=== PATIENT | female | born 1990 | race Caucasian/White ===

== ENCOUNTER → 2017-07-21 16:30 | Outpatient (CLI) | payer OTHER, SELFPAY ==
[2017-04-04 22:00] VITALS: BP 122/73
[2017-05-12 18:18] VITALS: BP 107/67; BP 109/68
[2017-05-30 16:08] VITALS: BP 106/71; BMI 31.3
--- NOTE | 2017-07-21 | IMM_PTH ---
PATIENT: FREDDIE GREENWOOD LOC: AIDE U#:[id number] AGE/SX: 34/F ROOM: RE07/21/[address]: Dr. Arabella Merritt MD : 1990 BED: DIS: SPEC #: [id number] RECD: 07/25/17 11:44 STATUS: NUPUR JONY #: [id number] THERESA: 07/21/17 00:[address]: Arabella Molina DEPT: IMMUNOHISTOCHEMISTRY RECD BY: Anette Sanchez Tissues: A - Uterine cervix, NOS Procedures: p16 (initial) KI-67 (add) PHYSICIAN & INSTITUTION [place] [id number] SPECIMEN INFORMATION: Tissue Source: A ? Cervical biopsy 12 o?clock Clinical Info: [facility] Specimen Number: [id number] CPT code: 17603, 71117 METHODOLOGY: Deparaffinized sections of prefer/formalin-fixed tissue or PAP/DQ stained slides are incubated with monoclonal/polyclonal antibodies/oligonucleotide probes. Localization is made via biotin free immunoperoxidase method. Appropriate controls are performed and reacted as expected. Results on target cell population are indicated in the following table: RESULTS: ANTIBODY / CLONE RESULT Block A P16 (E6H4) positive, focal patchy Ki-67 (30-9) positive, low These tests were developed and their performance characteristics determined by [facility]. They may not have been cleared or approved by the U.S. Food and Drug Administration. The FDA has determined that such clearance or approval is not necessary. INTERPRETATION: A. Cervix at 12 o?clock, biopsy: Consistent with HPV change. AM:sidra 07/26/17
--- NOTE | 2017-07-21 14:05 | CER_PTH ---
PATIENT: FREDDIE GREENWOOD LOC: AIDE U#:[id number] AGE/SX: 34/F ROOM: RE07/21/[address]: Dr. Arabella Merritt MD : 1990 BED: DIS: SPEC #: [id number] RECD: 07/21/17 15:33 STATUS: NUPUR JONY #: [id number] THERESA: 07/21/17 14:[address]: Arabella Molina DEPT: SURGICAL PATHOLOGY RECD BY: Jose Elias Larson Tissues: \A - Uterine cervix, NOS B - Endocervical Procedures: Surgery Specimen Level IV HEADER OPERATION: Colposcopy PRE-OP DIAGNOSIS: LGSIL pap 07/09/16; LMP 07/02/17 TISSUE SUBMITTED: A ? Cervical biopsy 12 o?clock, B - ECC MICROSCOPIC DIAGNOSIS A. Cervix at 12 o?clock, biopsy: HPV change/TEE I. Minimal chronic inflammation. B. Endocervix, curettings: Scant strips of benign superficial endocervix. AM:sidra 07/25/17 COMMENT A. Immunohistochemistry ([id number]) for surrogate HPV marker (p16) will be reported separately. MICROSCOPIC DESCRIPTION Slides are reviewed. GROSS DESCRIPTION A - Received in fixative is one container labeled with the patient's name and designated cervical biopsy at 12 o'clock. The specimen consists of one irregular fragment of light saab soft tissue that measures 0.5 x 0.3 x 0.1 cm. The specimen is totally submitted in one cassette. B - Received in fixative is one container labeled with the patient's name and designated ECC. The specimen consists of multiple minute fragments of light saab soft tissue that in aggregate measure 1 x 0.5 x <0.1 cm. The specimen is totally submitted in one cassette. / AM:sidra 07/22/17 TC:3 CPT: 36235 x2
[2017-07-26 14:37] LABS: HPV Reflexed? NOT INDICATED
== END ==
PROVIDERS: Visit Provider Obstetrics & Gynecology
DX: R87.612 Low grade squamous intraepithelial lesion on cytologic smear of cervix (LGSIL) (principal); Z12.4 Encounter for screening for malignant neoplasm of cervix
CPT/HCPCS: 88175; 88305; 88341; 88342; G0145

== ENCOUNTER → 2018-02-27 06:51 | Outpatient (CLI) | payer OTHER, SELFPAY ==
[2018-02-27 09:03] LABS: Hematocrit 37.1 % (37-47); Hemoglobin 12.6 g/dl (12.0-15.0); Mean Corpuscular Hgb 31.5 pg (27.0-32.0); Mean Corpuscular Volume 92.8 fL (81-99); Platelet Count 227 K/mm3 (150-450); RBC Distribution Width CV 11.8 % (11.6-14.6); RBC Distribution Width SD 39.3 fl (35.1-43.9)
[2018-02-27 09:12] LABS: Scan Indicated on CBC? Y/N NO
[2018-02-27 09:13] LABS: Glucose 75GTT - 30 minutes 114 mg/dL (100-160)
[2018-02-27 09:14] LABS: Glucose 75GTT - 60 minutes 95 mg/dL (100-160)
[2018-02-27 09:18] LABS: Insulin 75GTT - 30 MIN 43.3 mU/L (Not Estab.)
[2018-02-27 09:20] LABS: Insulin 75GTT - 60 min 39.2 mU/L (Not Estab)
[2018-02-27 09:20] LABS: Insulin 75GTT - Fasting 4.4 mU/L (2.6-37.6)
[2018-02-27 09:21] LABS: Progesterone Level 0.47 ng/mL (See Comment); Vitamin D,25 Hydroxy 26.5 ng/mL (29.95-100.01)
[2018-02-27 09:23] LABS: Glucose 75GTT - Fasting 81 mg/dL (70-99)
[2018-02-27 10:01] LABS: Glucose 75GTT - 120 minutes 85 mg/dL (70-140)
[2018-02-27 10:13] LABS: Insulin 75GTT - 120 min 17.7 mU/L (Not Estab.)
[2018-02-27 11:49] LABS: Estradiol 66.4 pg/mL; Follicle Stimulating Hormone 4.7 mIU/mL; Free T3 2.6 pg/mL (2.18-3.98); GGTP 10 U/L (5-55); Prolactin 8.5 ng/mL; T4 Free Direct 0.92 ng/dL (0.76-1.46); Thyroid Stim Hormone (TSH) 0.65 uIU/mL (0.358-3.74)
[2018-02-28 05:08] LABS: DHEA Sulfate 165.8 ug/dL (84.8-378.0)
[2018-02-28 09:49] LABS: Sex Hormone-binding Globulin 67.3 nmol/L (24.6-122.0)
[2018-03-02 09:07] LABS: 17-Hydroxyprogesterone 30 ng/dL (.)
== END ==
PROVIDERS: Family Provider Family Medicine; PCP Family Medicine; Visit Provider Obstetrics & Gynecology
DX: R45.86 Emotional lability (principal); E55.9 Vitamin D deficiency, unspecified; L65.9 Nonscarring hair loss, unspecified; Z68.37 Body mass index [BMI] 37.0-37.9, adult
CPT/HCPCS: 36415; 82306; 82533; 82627; 82670; 82951; 82952; 82977; 83001; 83498; 83525; 84144; 84146; 84270; 84403; 84439; 84443; 84481; 85027; 82626

== ENCOUNTER → 2018-06-15 17:49 | Outpatient (CLI) | payer OTHER, SELFPAY ==
[2018-06-22 09:34] LABS: HPV APTIMA, High Risk Negative (Negative)
== END ==
PROVIDERS: Family Provider Family Medicine; PCP Family Medicine; Referring Provider Obstetrics & Gynecology; Visit Provider Obstetrics & Gynecology
DX: E55.9 Vitamin D deficiency, unspecified (principal); Z12.4 Encounter for screening for malignant neoplasm of cervix
CPT/HCPCS: 82306; 87624; 88175; G0145

== ENCOUNTER → 2019-04-20 | Outpatient (CLI) | payer OTHER, SELFPAY ==
[2019-04-20 20:44] LABS: hCG Titer Quant., Serum < 1 mIU/mL (1-3)
[2019-04-20 20:54] LABS: Progesterone Level 5.23 ng/mL (See Comment)
== END | disposition home or self-care (01) ==
LOC: WOBLAB 13:05
PROVIDERS: Family Provider Family Medicine; PCP Family Medicine; Visit Provider Obstetrics & Gynecology
DX: N91.2 Amenorrhea, unspecified (principal)
CPT/HCPCS: 36415; 84144; 84702

== ENCOUNTER → 2020-01-04 | Outpatient (CLI) | payer OTHER, SELFPAY ==
[2017-05-30 16:08] VITALS: BMI 31.3
[2020-01-04 15:51] LABS: Basophil# 0.04 X10^3/uL; Basophil% 0.4 % (0-1); Eosinophil# 0.04 X10^3/uL; Eosinophils% 0.4 % (0-5); Hematocrit 37.3 % (37-47); Hemoglobin 12.5 g/dL (12.0-15.0); Lymphocyte % 18.1 % (19-41); Mean Corp Hgb Conc 33.5 g/dL (32-36); Mean Corpuscular Hgb 31.4 pg (27.0-32.0); Mean Corpuscular Volume 93.7 fL (81-99); Mean Platelet Vol. 11.6 fl (6.2-12.0); Monocyte# 0.62 X10^3/uL; Monocyte% 6.6 % (0-10); NRBC Flagged by Analyzer 0 % (0-5); Neutrophil # 6.95 X10^3/uL (2.7-7.7); Neutrophil % 74.1 % (47-70); Platelet Count 244 K/mm3 (150-450); RBC Distribution Width CV 11.5 % (11.6-14.6); RBC Distribution Width SD 38.9 fl (35.1-43.9); Red Blood Count 3.98 M/mm3 (4.2-5.4); White Blood Count 9.4 K/mm3 (4.4-11.0)
[2020-01-04 16:17] LABS: Thyroid Stim Hormone (TSH) 0.41 uIU/mL (0.358-3.74)
[2020-01-04 16:20] LABS: Color, Urine Yellow (Yellow); Glucose, Dipstick Normal (Normal); Ketone-Dipstick Negative (Negative); Leukocyte Esterase-Dipstick Negative /ul (Negative); Nitrite-Dipstick Negative (Negative); Occult Blood-Urine Negative /ul (Negative); Protein-Dipstick Negative (Negative); Urine Bilirubin Dipstick Negative (Negative); Urine Clarity Clear (Clear); Urine Urobilinogen Normal (Normal)
[2020-01-04 16:37] LABS: Amphetamine Urine VISTA NEGATIVE (<1000 ng/mL); Barbiturate Urine VISTA NEGATIVE (< 200 ng/mL); Benzodiazepine Urine VISTA NEGATIVE (< 200 ng/mL); Cocaine Urine VISTA NEGATIVE (< 300 ng/mL); Ecstacy Urine VISTA NEGATIVE (< 500 ng/mL); Methadone Urine VISTA NEGATIVE (< 300 ng/mL); PCP Urine VISTA NEGATIVE (< 25 ng/mL); THC Urine VISTA NEGATIVE (< 50 ng/mL); Vista UDS pH Range 7
[2020-01-04 16:58] LABS: HIV - WCH Non-Reactive (Nonreactive); Hepatitis B Surface Antigen Non-Reactive (Nonreactive); Hepatitis C Antibody Non-Reactive (Nonreactive); Vitamin D,25 Hydroxy 57.2 ng/mL
[2020-01-04 17:48] LABS: Chlamydia Trachomatis by PCR Negative (Negative); Neisserai gonorrhoeae by PCR Negative (Negative); Probe Check PASS; Sample Adequacy Control PASS; Specimen Processing Control PASS
[2020-01-10 02:01] LABS: Prenatal RPR NONREACTIVE (NONREACTIVE)
== END | disposition home or self-care (01) ==
LOC: LABSPEC 14:09
PROVIDERS: PCP Family Medicine; Visit Provider Obstetrics & Gynecology
DX: Z34.81 Encounter for supervision of other normal pregnancy, first trimester (principal)
CPT/HCPCS: 80307; 81002; 82306; 84443; 85025; 86703; 86762; 86803; 87340; 87491; 87591

== ENCOUNTER → 2020-06-17 08:59 | Outpatient (CLI) | payer OTHER, SELFPAY ==
[2020-06-17 10:46] LABS: Hematocrit 32.4 % (37-47); Hemoglobin 10.7 g/dL (12.0-15.0); Mean Corpuscular Hgb 30.8 pg (27.0-32.0); Mean Corpuscular Volume 93.4 fL (81-99); Mean Platelet Vol. 10.6 fl (6.2-12.0); Platelet Count 168 K/mm3 (150-450); RBC Distribution Width CV 12.7 % (11.6-14.6); RBC Distribution Width SD 43.1 fl (35.1-43.9); Red Blood Count 3.47 M/mm3 (4.2-5.4); White Blood Count 7.7 K/mm3 (4.4-11.0)
[2020-06-17 10:50] LABS: Glucose Challenge Gest 1H 50g 107 mg/dL (70-140)
[2020-06-17 14:15] LABS: Ferritin 9 ng/mL (8-252)
== END ==
PROVIDERS: PCP Family Medicine; Visit Provider Obstetrics & Gynecology
DX: O28.0 Abnormal hematological finding on antenatal screening of mother (principal); R79.0 Abnormal level of blood mineral; Z3A.00 Weeks of gestation of pregnancy not specified
CPT/HCPCS: 36415; 82728; 82950; 85027; 86850

== ENCOUNTER → 2020-07-16 | Outpatient (CLI) | payer BC, SELFPAY ==
[2017-05-30 16:08] VITALS: BMI 31.3
== END | disposition home or self-care (01) ==
PROVIDERS: PCP Family Medicine; Visit Provider Obstetrics & Gynecology
DX: N39.0 Urinary tract infection, site not specified (principal)
CPT/HCPCS: 87086; 87088

== ENCOUNTER → 2020-07-23 | Outpatient (CLI) | payer BC, SELFPAY ==
[2017-05-30 16:08] VITALS: BMI 31.3
== END | disposition home or self-care (01) ==
LOC: LABSPEC 17:20
PROVIDERS: PCP Family Medicine; Visit Provider Obstetrics & Gynecology
DX: Z36.85 Encounter for antenatal screening for Streptococcus B (principal)
CPT/HCPCS: 87081

== ENCOUNTER → 2020-08-05 | Outpatient (CLI) | payer BC, SELFPAY | END | disposition home or self-care (01) | LOC: LABSPEC 16:34 | PROVIDERS: PCP Family Medicine; Referring Provider Obstetrics & Gynecology; Visit Provider Obstetrics & Gynecology | DX: Z03.818 Encounter for observation for suspected exposure to other biological agents ruled out (principal) | CPT/HCPCS: 87635; C9803; U0005; U0003 ==

== ENCOUNTER 2020-08-12 05:05 | Inpatient (IN) | payer BC, SELFPAY ==
[2020-08-12] VITALS (22 sets, daily range): BP systolic 92–120; BP diastolic 42–76; PULSE 60–79; RESP 12–18; TEMP 36.1–36.6; O2SAT 96–98; BMI 36.8
[2020-08-12] MEDS: Lactated Ringers 1,000 ML 999 ML IV (05:17)
[2020-08-12 05:36] LABS: Basophil# 0.04 X10^3/uL; Basophil% 0.4 % (0-1); Eosinophil# 0.08 X10^3/uL; Eosinophils% 0.8 % (0-5); Hematocrit 36.4 % (37-47); Mean Corpuscular Volume 94.1 fL (81-99); Mean Platelet Vol. 11.2 fl (6.2-12.0); Monocyte# 0.71 X10^3/uL; Monocyte% 6.7 % (0-10); NRBC Flagged by Analyzer 0 % (0-5); Neutrophil # 7.98 X10^3/uL (2.7-7.7); Neutrophil % 75.2 % (47-70); Platelet Count 152 K/mm3 (150-450); RBC Distribution Width CV 12.8 % (11.6-14.6); RBC Distribution Width SD 44.1 fl (35.1-43.9); Red Blood Count 3.87 M/mm3 (4.2-5.4); White Blood Count 10.6 K/mm3 (4.4-11.0)
[2020-08-12] MEDS: Lactated Ringers 1,000 ML 150 ML IV (06:26)
[2020-08-12] MEDS: Acetaminophen 500 MG Tablet 1000 MG PO ×3 (07:17→19:34)
[2020-08-12] MEDS: Sodium Citrate/Citric Acid 30 ML UDC PO (07:17)
[2020-08-12] MEDS: Cefazolin 2 GM in 0.9% Normal Saline 100 ML IV (07:22)
--- NOTE | 2020-08-12 07:25 | PCM.HPOB.BLA ---
History and Physical Date of Admission: 08/12/20 Chief complaint: Repeat History of present illness: 30-year-old G2, P1 at 39 weeks and 3 days with DENISE: 08/16/2020 by LMP arrives for repeat section. Denies headache, nausea vomiting, visual changes, chest pain, shortness of breath, right upper quadrant pain. Patient states good movement Obstetric history: G1: 41-week male primary section for failure to progress 04/01/2017 G2: Current Past medical history: Anxiety depression Medications: vitamin, Zoloft Past surgical history: section, repair of vaginal laceration Allergies: No known drug allergies Family history: Denies history of DVT or PE Social history: Denies smoking, alcohol use, drug use Review of systems: Besides the above pertinent positives a full review of systems was performed and found to be negative Physical exam: General: Normal-appearing no acute distress HEENT: Normocephalic and atraumatic no cervical lymphadenopathy Cardiac/respiratory: No use of accessory muscles nonlabored breathing Abdomen: Soft, nontender, gravid Extremities: No peripheral edema normal peripheral pulses Psych: Normal affect normal demeanor nonpressured speech Mom's Labs & Results 08/12/20 08/12/20 05:17 05:17 WBC 10.6 RBC 3.87 L Hgb 12.0 Hct 36.4 L MCV 94.1 MCH 31.0 MCHC 33.0 RDW Std Deviation 44.1 H RDW Coeff of Edward 12.8 Plt Count 152 MPV 11.2 Immature Gran % (Auto) 0.900 Neut % (Auto) 75.2 H Lymph % (Auto) 16.0 L [place] % (Auto) 6.7 Eos % (Auto) 0.8 Baso % (Auto) 0.4 Absolute Neuts (auto) 8.0 H Absolute Lymphs (auto) 1.70 Nucleated RBC % 0 Blood Type Pending Antibody Screen Pending Labs Blood Type: B RH: NEGATIVE RPR/VDRL/Syphilis Nonreactive Rubella status Immune HbSAg Negative Date Done: 01/03/21 Chlamydia Negative Gonorrhea Negative HIV/AIDS Non-Reactive Group B Strep: Negative Medications Taken During Dose/Freq.: [Antidepressant] 100 mg DAILY Last Date/Time of Medication 08/11/2020 Taken: [Antidepressant] Reason for taking medication [ depression/anxiety Antidepressant] Assessment and plan: 30-year-old at 39 weeks and 3 days for repeat section -Admit to women's feeling -2 g Ancef -CEFM -Routine orders Rh-: For RhoGam -Anesthesia to see
--- NOTE | 2020-08-12 08:30 | PCM.OPRPT ---
Delivery Date of Procedure: 08/12/20 Pre-Operative Diagnosis: Term, history of section Post-Operative Diagnosis: Term, history of section Description of Procedure: Surgeon: Kel Fitzpatrick MD Procedure: Repeat section Via Pfannenstiel incision EBL 600 cc IV fluids 1000 cc Urine output minimal Anesthesia: Spinal Complications: None Specimen: None Findings: Female infant in vertex position Apgars 8/9. Normal uterus, tubes, and ovaries. Minimal adhesions Consent: Patient with history of section at term need of repeat section. Patient understands the risk of the procedure include but are not limited to visceral or vascular injury, prolonged hospitalization, blood loss need for transfusion, reoperation. Patient had understanding wished proceed. All questions were answered consent was signed. Procedure: Patient was brought back to the OR where spinal anesthesia found to be adequate. 2 g of Ancef were given for infection prophylaxis. Patient was apparent draped in a dorsal supine position with leftward tilt. A Pfannenstiel incision was made the skin with a scalpel. The incision was carried down to the fascia with a scalpel. The fascia was excised extended laterally. Inferior aspect of the fascia was grasped and the underlying rectus and pyramidalis muscle dissected off sharply. In a similar fashion superior aspect of the fascia was grasped with a Heather clamp and the underlying rectus muscle was dissected off sharply. Rectus was dissected to the midline down to the level of the pubic symphysis. Peritoneum was entered bluntly. Peritoneum was extended superiorly and inferiorly with good visualization of bladder. Bladder blade was inserted and vesicouterine peritoneum was identified. Low transverse hysterotomy was made. Hand was placed into the hysterotomy and gentle fundal pressure was applied once the bladder blade was removed and the head was brought into the incision. Head and shoulders were delivered with ease. Cord was cut and clamped. He was handed off to nursing. Placenta was delivered via cord traction and fundal massage. IV oxytocin was initiated in order to facilitate uterine contractions. Uterus was exteriorized and wiped out with dry laparotomy sponge in order to remove remaining placental membranes. Uterus was closed continuous running fashion. Second layer was performed. Uterus was placed back into the abdominal cavity and good hemostasis was noted. Muscles reapproximated. Fascia was closed in a continuous running fashion. Skin was closed in a subcuticular fashion. All counts correct x2. Patient tolerated procedure well was brought to recovery in stable condition.
--- NOTE | 2020-08-12 08:37 | DCINST_ITS ---
Discharge Diet: No Restrictions Discharge Activity: Return to Normal Activity, May Drive, May not drive while taking narcotic pain medications., May Shower, - - No tub baths for 2 weeks May resume sexual activity in: 4-6 weeks Lifting Restrictions: No lifting over 25 pounds for 3 weeks Call your doctor if your incision/area has: Continuous Slow Oozing, Foul Smelling Discharge Call your doctor if you observe: Fever of 101 or Higher, Shortness of breath, Chest pain Additional Instructions: If you experience any of the following, contact your healthcare provider. * Bleeding that soaks a pad every hour for 2 hours * Fever 100.4 or higher * Unrelieved incision or abdominal pain * Swelling, redness, discharge or bleeding from your incision or episiotomy site * Your incision begins to separate * Problems urinating (including inability to urinate or burning while urinating). * Visual changes * Severe headache * Flu-like symptoms * Pain or redness in one of both of your breasts * Pain, warmth, tenderness or swelling in your legs, especially the calf area * Frequent nausea and vomiting * Symptoms of depression or anxiety If you experience any of the following, call 911 or go to the nearest Emergency Room. * Chest pain * Problems breathing * Seizure activity * Partial or complete paralysis of a body part, slurred speech, weakness or drooping of the face, or a sudden inability to walk or hold your balance Allergies/Adverse Reactions: Allergies No Known Allergies Allergy (Verified 08/12/20 05:19) Medications to take at Discharge Sertraline HCl [Zoloft] 100 mg PO DAILY 03/31/17 Ferrous Sulfate, Dried [Iron] 65 mg PO DAILY 08/12/20 Oxycodone [Oxyir] 5 mg PO Q6H PRN PRN 4 Days #16 tablet 08/12/20 Vit No.130/Iron/Folic [ Tablet] 1 tab PO DAILY 08/12/20 The following prescriptions were given: Oxycodone [Oxyir] 5 mg PO Q6H PRN PRN 4 Days #16 tablet PRN Reason: Pain Score 6-10 Transmission Status: Sent to [facility] Follow-Up: Call to make an appointment with your doctor for an incision check in 1-2 weeks. You will also need a 6 week post- follow up appointment. Test results from this visit will be discussed in further detail at your follow- up appointment, if applicable. Please Follow Up With: Kel Fitzpatrick MD When: 2 weeks Primary Care Physician: Juanito Tejada MD [Primary Care Provider] -
[2020-08-12] MEDS: Oxytocin 30 units/NS 500 ml 30 UNITS/500 ML IV.SOLN 167 UNITS IV (08:45)
--- NOTE | 2020-08-12 09:27 | NURSING ---
Pre-op checklist not completed by prior RN. This RN completed pre-op checklist at this time with information gathered during morning shift change report and worksheet completed by prior RN.
[2020-08-12] MEDS: Lactated Ringers 1,000 ML 100 ML IV (12:00)
[2020-08-12] MEDS: Senna/Docusate Sodium 1 Tablet PO (13:17)
[2020-08-12] MEDS: Ketorolac 30 MG/ML Syringe IV ×2 (15:16→20:33)
[2020-08-12] MEDS: Enoxaparin 40 MG/0.4 ML Syringe SC (20:33)
[2020-08-13 01:08] VITALS: RESP 16; O2SAT 99
[2020-08-13] MEDS: Acetaminophen 500 MG Tablet 1000 MG PO ×2 (01:32→07:29)
[2020-08-13] MEDS: Ketorolac 30 MG/ML Syringe IV ×2 (02:29→08:41)
[2020-08-13] MEDS: 0.9% Saline Lock 10 ML Syringe IV ×2 (02:30→08:41)
[2020-08-13 03:26] VITALS: BP 103/56; PULSE 71; RESP 18; TEMP 36.8; O2SAT 98
[2020-08-13 05:05] VITALS: RESP 16; O2SAT 99
[2020-08-13 06:04] LABS: Hematocrit 32.4 % (37-47); Hemoglobin 10.9 g/dL (12.0-15.0); Mean Corp Hgb Conc 33.6 g/dL (32-36); Mean Corpuscular Hgb 32.2 pg (27.0-32.0); Mean Corpuscular Volume 95.6 fL (81-99); Mean Platelet Vol. 11.4 fl (6.2-12.0); Platelet Count 135 K/mm3 (150-450); RBC Distribution Width SD 45.4 fl (35.1-43.9); Red Blood Count 3.39 M/mm3 (4.2-5.4); White Blood Count 11.4 K/mm3 (4.4-11.0)
[2020-08-13 08:33] VITALS: BP 99/55; PULSE 68; RESP 18; TEMP 36.6; O2SAT 98
--- NOTE | 2020-08-13 08:33 | PCM.PN.OB ---
Subjective: No overnight complaints. Pain well controlled. - Physical Exam Vitals/I&O's: Vital Signs Temp Pulse Resp BP Pulse Ox 98.2 F 71 16 103/56 L 99 08/13/20 03:26 08/13/20 03:26 08/13/20 05:05 08/13/20 03:26 08/13/20 05:05 Oxygen Delivery Method Room Air Weight: 214 lb 4.629 oz Body Mass Index (BMI) 36.8 Intake and Output for Last 24 Hours 08/11/20 08/12/20 08/13/20 23:59 23:59 23:59 Intake Total 2720 / 2720 900 / 900 Output Total 750 / 750 1150 / 1150 Balance 1969 / 1969 -250 / -250 General: Alert, Oriented x3, Cooperative, No apparent distress HEENT: Atraumatic, Normocephalic Oral: Moist Mucosa Neck: Supple Abdomen: Soft, Non Tender, - - Bandage clean dry and intact. Fundus firm and below umbilicus Extremities: No clubbing, No cyanosis, No edema Neurological: Neuro grossly intact Psych/Mental Status: Normal Affect, Appropriate, Alert and oriented to time, place, person, mood and affect Laboratory Results 08/13/20 05:55: WBC 11.4 H, RBC 3.39 L, Hgb 10.9 L, Hct 32.4 L, MCV 95.6, MCH 32.2 H, MCHC 33.6, RDW Std Deviation 45.4 H, RDW Coeff of Edward 13.0, Plt Count 135 L, MPV 11.4 Current Medications Acetaminophen (Acetaminophen 500 Mg Tablet) 1,000 mg PO Q6H [facility] Last Admin: 08/13/20 07:29 Dose: 1,000 mg Documented by: Bisacodyl (Bisacodyl 10 Mg Suppository) 10 mg RECTAL UD PRN PRN Reason: If no BM Enoxaparin Sodium (Enoxaparin 40 Mg/0.4 Ml Syringe) 40 mg SC DAILY@2200 [facility] Last Admin: 08/12/20 20:33 Dose: 40 mg Documented by: Hydrocortisone (Hydrocortisone 2.5% Crm) 1 applic TOPICAL TID PRN PRN; Protocol PRN Reason: Discomfort Lactated Ringer's () 1,000 mls @ 100 mls/hr IV .Q10H [facility] Last Admin: 08/13/20 02:37 Dose: Not Given Documented by: Ibuprofen (Ibuprofen 600 Mg Tablet) 600 mg PO Q6H [facility] Ondansetron HCl (Ondansetron 4 Mg/2 Ml Vial) 4 mg IV Q4H PRN PRN PRN Reason: Nausea Oxycodone HCl (Oxycodone 5 Mg Tablet) 5 mg PO Q4H PRN PRN PRN Reason: Pain Score 4-10 Prochlorperazine Edisylate (Prochlorperazine 10 Mg/2 Ml Vial) 10 mg IV Q6H PRN PRN PRN Reason: NAUSEA Senna/Docusate Sodium (Senna/Docusate Sodium 1 Tablet) 1 - 2 tablet PO DAILY [facility] Last Admin: 08/12/20 13:17 Dose: 1 tablet Documented by: Simethicone (Simethicone 80 Mg Tablet) 80 mg PO PCHS PRN PRN Reason: Indigestion/stomach pain Sodium Chloride (0.9% Saline Lock 10 Ml Syringe) 5 - 15 ml IV UD PRN PRN Reason: SALINE FLUSH Last Admin: 08/13/20 02:30 Dose: 10 ml Documented by: Medical Necessity - Tobacco Use Smoking Status: Never smoker Assessment/Plan All Active Problems (Last Updated 06/27/17 @ 14:[address] Kel Grady MD) Patient is a currently breast-feeding mother (Acute) Open wound of left breast with complication (Acute) MRSA infection (Acute) Abscess of left breast (Acute) Postoperative day 1 status post repeat . Patient pain well controlled. Breast-feeding. Okay to discharge home today if okay with technical agronomist
[2020-08-13] MEDS: Senna/Docusate Sodium 1 Tablet PO (08:40)
== END 2020-08-13 12:30 | disposition home or self-care (01) | DRG 788 ==
PROVIDERS: Admitting Provider Obstetrics & Gynecology; PCP Family Medicine; Visit Provider Obstetrics & Gynecology
PROC: 10D00Z1 Extraction of Products of Conception, Low, Open Approach (ICD-10-PCS; CPT 59514; principal; 2020-08-12 07:15)
DX: O82 Encounter for cesarean delivery without indication (principal); Z3A.39 39 weeks gestation of pregnancy; Z37.0 Single live birth
CPT/HCPCS: 85025; 85027; 86850; 86900; 86901; 99218; J7120; A4216; G0378; J2405